=== PATIENT | male | born 1955 | race Caucasian/White ===

== ENCOUNTER → 2016-11-29 | Outpatient (CLI) | payer OTHER ==
[~2016-11-29] MED LIST: ASPIRIN 81M81 MG/TA2 PO; ATROVENT I0.2 MG/1 M IH; BRILINTA90 MG PO; CELEXA 20MG20 MG/TAB PO; INCRUSE EL62.5 MCG/A IH; IPRATROPIUM BROM3 M1 IH; K-DUR20 MEQ PO; K-TAB20 PO; LASIX 80MG TABL80 MG PO; MAG-OX 400400 MG/TAB PO; NATURAL MAGNES200 MG PO; PREDNISONE10 MG PO; TENORMIN 2525 MG/TAB PO; TENORMIN 5050 MG/TAB PO; THEO-DUR 2200 MG/TAB PO; ZOCOR 40MG40 MG PO
== END ==
LOC: COL.VAS 11:55
DX: I08.1 Rheumatic disorders of both mitral and tricuspid valves (principal); R94.39 Abnormal result of other cardiovascular function study; R06.00 Dyspnea, unspecified

== ENCOUNTER 2017-04-26 16:44 | Inpatient (IN) | payer OTHER ==
[~2017-04-26] VITALS: Ht 175.3 cm; Wt 99.3 kg
[2017-04-26] VITALS (263 sets, daily range): BP systolic 88–90; BP diastolic 57–61; PULSE 72–77; TEMP 97.6; O2SAT 85–100
[2017-04-26] MEDS ORDERED: CELEXA 20MG20 MG/TAB PO (17:43)
[2017-04-26] MEDS ORDERED: ASPIRIN 81M81 MG/TA2 PO (17:44)
[2017-04-26] MEDS ORDERED: THEO-DUR 2200 MG/TAB PO (17:44)
[2017-04-26] MEDS ORDERED: ATROVENT I0.2 MG/1 M IH (17:44)
[2017-04-26] MEDS ORDERED: ZOCOR 40MG40 MG PO (17:44)
[2017-04-26] MEDS ORDERED: TENORMIN 5050 MG/TAB PO (17:44)
[2017-04-26] MEDS ORDERED: INCRUSE EL62.5 MCG/A IH (18:50)
[2017-04-26 19:48] LABS: ARTERIAL BLD GAS O2 SATURATION 94.5 % (92-100); ARTERIAL BLD GAS TCO2 CT 31.3; ARTERIAL BLOOD GAS BASE EXCESS 1.1 (-2-2); ARTERIAL BLOOD GAS HCO3 29.4 meq/L (22-26); ARTERIAL BLOOD GAS PHT 7.29 C (7.35-7.45); ARTERIAL BLOOD GAS PO2 81.3 mmHg (80-100); ARTERIAL BLOOD GAS PO2T 81.3 (80-100); ARTERIAL BLOOD GAS pH 7.29 (7.35-7.45); OXYHEMOGLOBIN 93.1 %
[2017-04-26 19:49] LABS: ALLEN TEST YES; ALLENS TEST RESULT PASS; ATS? YES
[2017-04-26 20:08] LABS: INR 1.2 (0.8-3.0); PROTHROMBIN TIME 13.2 SECONDS (9.7-12.8)
[2017-04-26 20:10] LABS: PARTIAL THROMBOPLASTIN TIME 35.4 SECONDS (26.0-37.0)
[2017-04-26 20:24] LABS: MAGNESIUM 1.6 mg/dL (1.6-2.3)
[2017-04-26 20:36] LABS: TROPONIN-I 0.019 ng/mL (0.000-0.034)
[2017-04-26 21:11] LABS: PH 5 (5-8); SQUAMOUS EPITHELIAL None Seen /hpf; URINE APPEARANCE Clear; URINE BACTERIA None Seen /hpf; URINE BILIRUBIN Negative (NEGATIVE); URINE BLOOD 2+ (NEGATIVE); URINE COLOR Amber; URINE GLUCOSE Negative (NEGATIVE); URINE KETONE Negative (NEGATIVE); URINE UROBILINOGEN Negative (NEGATIVE)
[2017-04-26 21:21] LABS: ARTERIAL BLD GAS O2 SATURATION 95.9 % (92-100); ARTERIAL BLD GAS TCO2 CT 27.1; ARTERIAL BLOOD GAS HCO3 25.4 meq/L (22-26); ARTERIAL BLOOD GAS PO2 87.6 mmHg (80-100); ARTERIAL BLOOD GAS pH 7.29 (7.35-7.45); OXYHEMOGLOBIN 93.8 %
[2017-04-26 21:22] LABS: ABG VENTILATOR TIDAL VOLUME 450 mL; ALLEN TEST YES; ALLENS TEST RESULT PASS; ATS? YES
[2017-04-26 23:27] LABS: ARTERIAL BLD GAS TCO2 CT 28.3; ARTERIAL BLOOD GAS BASE EXCESS -1.7 (-2-2); ARTERIAL BLOOD GAS HCO3 26.4 meq/L (22-26); ARTERIAL BLOOD GAS PO2 76.6 mmHg (80-100); ARTERIAL BLOOD GAS pH 7.26 (7.35-7.45); OXYHEMOGLOBIN 91.2 %
[2017-04-26 23:28] LABS: ABG VENTILATOR TIDAL VOLUME 589 mL; ALLEN TEST YES; ALLENS TEST RESULT PASS; ATS? YES
[2017-04-27] VITALS (1080 sets, daily range): BP systolic 87–119; BP diastolic 60–72; PULSE 61–93; TEMP 96.1–97.8; O2SAT 45–100
[2017-04-27 01:18] LABS: ABG VENTILATOR TIDAL VOLUME 860 mL; ALLEN TEST YES; ALLENS TEST RESULT PASS; ARTERIAL BLD GAS O2 SATURATION 96.8 % (92-100); ARTERIAL BLD GAS TCO2 CT 25.7; ARTERIAL BLOOD GAS BASE EXCESS -0.6 (-2-2); ARTERIAL BLOOD GAS HCO3 24.4 meq/L (22-26); ARTERIAL BLOOD GAS PO2 92.8 mmHg (80-100); ARTERIAL BLOOD GAS pH 7.39 (7.35-7.45); ATS? YES; OXYHEMOGLOBIN 95.2 %
[2017-04-27 05:26] LABS: ARTERIAL BLD GAS O2 SATURATION 89.8 % (92-100); ARTERIAL BLOOD GAS BASE EXCESS -1.6 (-2-2); ARTERIAL BLOOD GAS HCO3 25.4 meq/L (22-26); ARTERIAL BLOOD GAS PO2 62.8 mmHg (80-100); OXYHEMOGLOBIN 88.4 %
[2017-04-27 05:27] LABS: ABG VENTILATOR TIDAL VOLUME 820 mL; ALLEN TEST YES; ALLENS TEST RESULT PASS; ATS? YES
[2017-04-27 05:47] LABS: HEMATOCRIT 38.5 % (42.0-52.0); HEMOGLOBIN 12.4 g/dl (13.5-18.0); MEAN CELL VOLUME 101 fl (80.0-100.0); MEAN CORPUSCULAR HEMOGLOBIN 32 pg (27.0-31.0); MEAN CORPUSCULAR HGB CONC 32 g/dl (33.0-37.0); MEAN PLATELET VOLUME 9.7 fl (7.4-10.4); PLATELET COUNT 98 K/mm3 (130-400); RED BLOOD COUNT 3.83 M/mm3 (4.20-5.60); REDCELL DISTRIBUTION WIDTH-CV 14.6 % (11.5-14.5); WHITE BLOOD COUNT 8.6 K/mm3 (4.8-10.8)
[2017-04-27 05:50] LABS: ADD PATHOLOGY DIFF REVIEW NO
[2017-04-27 05:56] LABS: ADJUSTED CALCIUM 8.7 mg/dL (8.4-10.2); ALANINE AMINOTRANSFERASE 33 U/L (21-72); ALKALINE PHOSPHATASE 56 U/L (50-136); ANION GAP 7 mmol/L (7-16); BILIRUBIN,TOTAL 0.5 mg/dL (0.0-1.0); BLOOD UREA NITROGEN 23 mg/dL (9-20); CALCIUM 7.9 mg/dL (8.4-10.2); CARBON DIOXIDE 27 mmol/L (22-30); CHLORIDE 100 mmol/L (98-107); CHOLESTEROL 74 mg/dL (120-200); CREATININE, serum 1.07 mg/dL (0.66-1.25); GLUCOSE 132 mg/dL (74-106); HDL CHOLESTEROL 22 mg/dL; LDL CHOLESTEROL 34 mg/dL; POTASSIUM 4.7 mmol/L (3.4-5.0); SODIUM 134 mmol/L (137-145); TOTAL PROTEIN 6.1 gm/dL (6.4-8.2); TRIGLYCERIDE 91 mg/dL
[2017-04-27 06:07] LABS: B-TYPE NATRIURETIC PEPTIDE 836 pg/mL (0-125); TROPONIN-I < 0.012 ng/mL (0.000-0.034)
[2017-04-27 06:38] LABS: BAND 65 % (0-10); NEUTROPHILS 32 % (42.0-75.2); TOTAL CELLS COUNTED 100
[2017-04-27 06:40] LABS: PLATELET ESTIMATE DECREASED (NORMAL); POLYCHROMASIA 1+; SPHEROCYTE 1+
[2017-04-27 07:56] LABS: ARTERIAL BLD GAS O2 SATURATION 91.4 % (92-100); ARTERIAL BLD GAS TCO2 CT 27.3; ARTERIAL BLOOD GAS HCO3 25.8 meq/L (22-26); ARTERIAL BLOOD GAS PHT 7.36 C (7.35-7.45); ARTERIAL BLOOD GAS PO2 64.7 mmHg (80-100); ARTERIAL BLOOD GAS PO2T 64.7 (80-100); ARTERIAL BLOOD GAS pH 7.36 (7.35-7.45); OXYHEMOGLOBIN 90.4 %
[2017-04-27 07:57] LABS: ATS? YES
[2017-04-27 15:19] LABS: ARTERIAL BLD GAS O2 SATURATION 91.3 % (92-100); ARTERIAL BLD GAS TCO2 CT 29.2; ARTERIAL BLOOD GAS BASE EXCESS 0.9 (-2-2); ARTERIAL BLOOD GAS HCO3 27.6 meq/L (22-26); ARTERIAL BLOOD GAS PHT 7.34 C (7.35-7.45); ARTERIAL BLOOD GAS pH 7.34 (7.35-7.45); OXYHEMOGLOBIN 90.6 %
[2017-04-27 15:20] LABS: ATS? YES
[2017-04-28] VITALS (313 sets, daily range): BP systolic 93–116; BP diastolic 53–77; PULSE 63–94; TEMP 96.9–98.7; O2SAT 85–100
[2017-04-28 04:38] LABS: ARTERIAL BLD GAS O2 SATURATION 97.2 % (92-100); ARTERIAL BLD GAS TCO2 CT 28.4; ARTERIAL BLOOD GAS BASE EXCESS 1.5 (-2-2); ARTERIAL BLOOD GAS PO2 96.3 mmHg (80-100); ARTERIAL BLOOD GAS pH 7.39 (7.35-7.45); OXYHEMOGLOBIN 96.4 %
[2017-04-28 04:40] LABS: ABG VENTILATOR TIDAL VOLUME 802 mL; ATS? YES
[2017-04-28 05:44] LABS: CALCIUM 8.5 mg/dL (8.4-10.2); CREATININE, serum 0.95 mg/dL (0.66-1.25); MAGNESIUM 2.1 mg/dL (1.6-2.3); POTASSIUM 4.3 mmol/L (3.4-5.0)
[2017-04-29 03:30] VITALS: BP 96/47; PULSE 58; TEMP 97.5
[2017-04-29 07:55] VITALS: BP 109/56; PULSE 80; TEMP 97.6
[2017-04-29 12:09] VITALS: BP 103/51; PULSE 65; TEMP 97.5
[2017-04-29 15:30] VITALS: BP 112/53; PULSE 75; TEMP 97.5
[2017-04-29 20:42] VITALS: BP 122/68; PULSE 79; TEMP 97.7
[2017-04-30 01:13] VITALS: BP 113/66; PULSE 69; TEMP 97.4
[2017-04-30 05:28] VITALS: BP 124/75; PULSE 64; TEMP 97.4
[2017-04-30 07:07] LABS: CALCIUM 8.5 mg/dL (8.4-10.2); CREATININE, serum 0.89 mg/dL (0.66-1.25); POTASSIUM 3.8 mmol/L (3.4-5.0)
[2017-04-30 08:09] VITALS: BP 110/67; PULSE 74; TEMP 97.6
[2017-04-30 11:43] VITALS: BP 104/72; PULSE 71; TEMP 97.4
[2017-04-30 15:34] VITALS: BP 114/54; PULSE 74; TEMP 98.1
[2017-04-30 20:23] LABS: CALCIUM 9.1 mg/dL (8.4-10.2); CREATININE, serum 1.04 mg/dL (0.66-1.25); MAGNESIUM 2.1 mg/dL (1.6-2.3); POTASSIUM 4.3 mmol/L (3.4-5.0)
[2017-04-30 20:55] VITALS: BP 106/69; PULSE 72; TEMP 97.7
[2017-05-01 00:39] VITALS: BP 106/73; PULSE 58; TEMP 97.3
[2017-05-01 04:43] VITALS: BP 117/77; PULSE 79; TEMP 97.5
[2017-05-01 06:56] LABS: CALCIUM 8.8 mg/dL (8.4-10.2); CREATININE, serum 0.96 mg/dL (0.66-1.25); MAGNESIUM 2.2 mg/dL (1.6-2.3); POTASSIUM 4.1 mmol/L (3.4-5.0)
[2017-05-01 08:01] VITALS: BP 110/59; PULSE 100; TEMP 97.8
[2017-05-01 11:35] VITALS: BP 101/58; PULSE 71; TEMP 98.2
[2017-05-01 16:43] VITALS: BP 116/72; PULSE 72; TEMP 97.9
[2017-05-01 20:51] VITALS: BP 104/60; PULSE 75; TEMP 97.4
[2017-05-02 00:22] VITALS: BP 106/63; PULSE 76; TEMP 97.5
[2017-05-02 03:49] VITALS: BP 111/69; PULSE 66; TEMP 97.5
[2017-05-02 07:01] LABS: CREATININE, serum 1.05 mg/dL (0.66-1.25); POTASSIUM 4.5 mmol/L (3.4-5.0)
[2017-05-02 08:04] VITALS: BP 112/63; PULSE 83; TEMP 97.6
[2017-05-02] MEDS ORDERED: PREDNISONE10 MG PO (10:26)
[2017-05-02] MEDS ORDERED: K-TAB20 PO (10:29)
[2017-05-02] MEDS ORDERED: LASIX 80MG TABL80 MG PO (10:29)
[2017-05-02] MEDS ORDERED: MAG-OX 400400 MG/TAB PO (10:31)
[2017-05-02] MEDS ORDERED: TENORMIN 2525 MG/TAB PO (10:33)
[2017-05-02 11:22] VITALS: BP 102/67; PULSE 77; TEMP 98.2
== END 2017-05-02 12:42 | disposition home or self-care (01) | DRG 189 ==
LOC: MEDICAL 16:44 → ICU 19:29 → MEDICAL 04-28 11:56 → ICU 04-28 11:56 → MEDICAL 05-01 10:12
PROVIDERS: Internal Medicine Pulmonary Disease; Nurse Practitioner Family; Physician Assistant
DX: J96.01 Acute respiratory failure with hypoxia (principal); J18.9 Pneumonia, unspecified organism; I50.33 Acute on chronic diastolic (congestive) heart failure; J44.0 Chronic obstructive pulmonary disease with (acute) lower respiratory infection; N17.9 Acute kidney failure, unspecified; J44.1 Chronic obstructive pulmonary disease with (acute) exacerbation; J96.02 Acute respiratory failure with hypercapnia; I11.0 Hypertensive heart disease with heart failure; I25.10 Atherosclerotic heart disease of native coronary artery without angina pectoris; I08.3 Combined rheumatic disorders of mitral, aortic and tricuspid valves; I27.2 Other secondary pulmonary hypertension; F17.210 Nicotine dependence, cigarettes, uncomplicated; G47.33 Obstructive sleep apnea (adult) (pediatric)
CPT/HCPCS: 99223-AI; 99233-AI; 99239; J0456; J0696; J1200; J1644; J1940; J1956; J2920; J2930; J3475; J7030; J7050; J7120; J7512

== ENCOUNTER 2017-05-13 08:19 | Observation (INO) | payer OTHER ==
[~2017-05-13] VITALS: Ht 175.4 cm; Wt 101.0 kg
[2017-05-13] VITALS (137 sets, daily range): BP systolic 90–105; BP diastolic 57–80; PULSE 70–93; TEMP 37; O2SAT 87–100
[~2017-05-13 08:19] MED LIST changes: -BRILINTA90 MG PO; -IPRATROPIUM BROM3 M1 IH; -K-DUR20 MEQ PO; -NATURAL MAGNES200 MG PO
[2017-05-13 09:03] LABS: HEMATOCRIT 42.6 % (42.0-52.0); HEMOGLOBIN 14.1 g/dl (13.5-18.0); MEAN CELL VOLUME 98 fl (80.0-100.0); MEAN CORPUSCULAR HEMOGLOBIN 32 pg (27.0-31.0); MEAN CORPUSCULAR HGB CONC 33 g/dl (33.0-37.0); MEAN PLATELET VOLUME 9.9 fl (7.4-10.4); PLATELET COUNT 120 K/mm3 (130-400); RED BLOOD COUNT 4.36 M/mm3 (4.20-5.60); REDCELL DISTRIBUTION WIDTH-CV 14.1 % (11.5-14.5); WHITE BLOOD COUNT 9.3 K/mm3 (4.8-10.8)
[2017-05-13] MEDS ORDERED: TENORMIN 2525 MG/TAB PO (09:05)
[2017-05-13] MEDS ORDERED: LASIX 80MG TABL80 MG PO (09:06)
[2017-05-13] MEDS ORDERED: MAG-OX 400400 MG/TAB PO (09:07)
[2017-05-13] MEDS ORDERED: K-DUR20 MEQ PO (09:08)
[2017-05-13 09:09] LABS: PROTHROMBIN TIME 11.2 SECONDS (9.7-12.8)
[2017-05-13] MEDS ORDERED: IPRATROPIUM BROM3 M1 IH (09:10)
[2017-05-13 09:14] LABS: CREATININE, serum 1.11 mg/dL (0.66-1.25); POTASSIUM 4.4 mmol/L (3.4-5.0)
[2017-05-14] VITALS (7 sets, daily range): BP systolic 82–125; BP diastolic 45–79; PULSE 65–96; TEMP 97.8–100.4
[2017-05-14] MEDS ORDERED: BRILINTA90 MG PO (11:09)
[2017-05-14] MEDS ORDERED: NATURAL MAGNES200 MG PO (11:11)
[2017-05-14 12:45] LABS: PH 7 (5-8); SQUAMOUS EPITHELIAL None Seen /hpf; URINE APPEARANCE Clear; URINE BACTERIA None Seen /hpf; URINE BILIRUBIN Negative (NEGATIVE); URINE BLOOD 1+ (NEGATIVE); URINE COLOR Yellow; URINE GLUCOSE Negative (NEGATIVE); URINE KETONE Negative (NEGATIVE); URINE UROBILINOGEN Negative (NEGATIVE); URINE WBC None Seen /hpf
[2017-05-14 14:10] LABS: BASO % 0.2 % (0.0-2.0); EOS % 0.4 % (0-4.0); GRAN # 7.6 (1.4-6.5); GRAN % 85.5 % (42.2-75.2); HEMATOCRIT 44.5 % (42.0-52.0); HEMOGLOBIN 14.2 g/dl (13.5-18.0); LYMPH # 0.6 (1.2-3.4); LYMPH % 6.3 % (20.0-51.0); MEAN CELL VOLUME 102 fl (80.0-100.0); MEAN CORPUSCULAR HEMOGLOBIN 32 pg (27.0-31.0); MEAN CORPUSCULAR HGB CONC 32 g/dl (33.0-37.0); MEAN PLATELET VOLUME 10.2 fl (7.4-10.4); MONO # 0.7 (0.1-0.6); MONO % 7.3 % (1.7-9.3); PLATELET COUNT 103 K/mm3 (130-400); RED BLOOD COUNT 4.38 M/mm3 (4.20-5.60); REDCELL DISTRIBUTION WIDTH-CV 14.2 % (11.5-14.5); WHITE BLOOD COUNT 8.9 K/mm3 (4.8-10.8)
[2017-05-15 00:26] VITALS: BP 91/55; PULSE 74; TEMP 97.8
[2017-05-15 03:57] VITALS: BP 102/61; PULSE 77; TEMP 98.1
[2017-05-15 07:35] VITALS: BP 104/60; PULSE 79; TEMP 97.6
[2017-05-15 11:19] VITALS: BP 91/57; PULSE 71; TEMP 98
== END 2017-05-15 12:29 | disposition home or self-care (01) ==
LOC: COL.CAR 08:19 → ICU 14:13 → MEDICAL 05-14 12:50 → COL.CAR 05-14 13:00 → MEDICAL 05-14 13:01
PROVIDERS: Internal Medicine Cardiovascular Disease
DX: I25.10 Atherosclerotic heart disease of native coronary artery without angina pectoris (principal); I27.2 Other secondary pulmonary hypertension; J44.1 Chronic obstructive pulmonary disease with (acute) exacerbation; G47.33 Obstructive sleep apnea (adult) (pediatric); I50.9 Heart failure, unspecified; Z95.5 Presence of coronary angioplasty implant and graft
CPT/HCPCS: OP; C1725; C1760; C1769; C1874; C1887; C1894; C9600; G0378; G0379; J0583; J2250; J2405; J3010; Q9967

== ENCOUNTER 2017-06-19 12:19 | Inpatient (IN) | payer OTHER ==
[~2017-06-19] VITALS: Ht 175.3 cm; Wt 106.0 kg
[2017-06-19] VITALS (426 sets, daily range): BP systolic 99–102; BP diastolic 58–69; PULSE 83–106; TEMP 99.1–100.2; O2SAT 44–100
[~2017-06-19 12:19] MED LIST changes: +BRILINTA90 MG PO; +IPRATROPIUM BROM3 M1 IH; +K-DUR20 MEQ PO; +NATURAL MAGNES200 MG PO
[2017-06-19 13:11] LABS: HEMATOCRIT 37.2 % (42.0-52.0); HEMOGLOBIN 12.6 g/dl (13.5-18.0); MEAN CELL VOLUME 97 fl (80.0-100.0); MEAN CORPUSCULAR HEMOGLOBIN 33 pg (27.0-31.0); MEAN CORPUSCULAR HGB CONC 34 g/dl (33.0-37.0); PLATELET COUNT 127 K/mm3 (130-400); RED BLOOD COUNT 3.84 M/mm3 (4.20-5.60); REDCELL DISTRIBUTION WIDTH-CV 15.3 % (11.5-14.5); WHITE BLOOD COUNT 13.2 K/mm3 (4.8-10.8)
[2017-06-19 13:17] LABS: ADJUSTED CALCIUM 8.8 mg/dL (8.4-10.2); CALCIUM 8.8 mg/dL (8.4-10.2); CREATININE, serum 1.37 mg/dL (0.66-1.25); POTASSIUM 3.8 mmol/L (3.4-5.0); TOTAL PROTEIN 7.1 gm/dL (6.4-8.2)
[2017-06-19 13:26] LABS: ADD PATHOLOGY DIFF REVIEW NO; TROPONIN-I 0.017 ng/mL (0.000-0.034)
[2017-06-19 14:39] LABS: BAND 47 % (0-10); NEUTROPHILS 48 % (42.0-75.2); PLATELET ESTIMATE DECREASED (NORMAL); TOTAL CELLS COUNTED 100
[2017-06-19 14:40] LABS: STOMATOCYTE 2+; THEOPHYLLINE 4.4 ug/mL (10.0-20.0)
[2017-06-19 15:34] LABS: PH 5 (5-8); SQUAMOUS EPITHELIAL 0-2 /hpf; URINE APPEARANCE Clear; URINE BACTERIA Rare /hpf; URINE BILIRUBIN Negative (NEGATIVE); URINE BLOOD 2+ (NEGATIVE); URINE COLOR Yellow; URINE GLUCOSE Negative (NEGATIVE); URINE KETONE Negative (NEGATIVE); URINE UROBILINOGEN Negative (NEGATIVE); URINE WBC 0-2 /hpf
[2017-06-19 16:25] LABS: INFLUENZA B NEGATIVE
[2017-06-19 16:30] LABS: C-REACTIVE PROTEIN 12.5 mg/dL (0.0-0.9)
[2017-06-19 17:17] LABS: ARTERIAL BLD GAS O2 SATURATION 95.3 % (92-100); ARTERIAL BLD GAS TCO2 CT 22.1; ARTERIAL BLOOD GAS BASE EXCESS -3.2 (-2-2); ARTERIAL BLOOD GAS HCO3 21.1 meq/L (22-26); OXYHEMOGLOBIN 94.3 %
[2017-06-19 17:18] LABS: ALLEN TEST YES; ALLENS TEST RESULT PASS; ATS? YES
[2017-06-20] VITALS (923 sets, daily range): BP systolic 88–106; BP diastolic 50–65; PULSE 40–100; TEMP 97–100.2; O2SAT 76–100
[2017-06-20 06:26] LABS: ADD PATHOLOGY DIFF REVIEW NO
[2017-06-20 06:31] LABS: MEAN CELL VOLUME 99 fl (80.0-100.0); MEAN CORPUSCULAR HGB CONC 33 g/dl (33.0-37.0); MEAN PLATELET VOLUME 10.1 fl (7.4-10.4); PLATELET COUNT 110 K/mm3 (130-400); RED BLOOD COUNT 3.12 M/mm3 (4.20-5.60); REDCELL DISTRIBUTION WIDTH-CV 15.7 % (11.5-14.5); WHITE BLOOD COUNT 8.7 K/mm3 (4.8-10.8)
[2017-06-20 06:32] LABS: HEMOGLOBIN 10.1 g/dl (13.5-18.0); MEAN CORPUSCULAR HEMOGLOBIN 32 pg (27.0-31.0)
[2017-06-20 07:02] LABS: BAND 31 % (0-10); NEUTROPHILS 68 % (42.0-75.2); TOTAL CELLS COUNTED 100
[2017-06-20 07:03] LABS: PLATELET ESTIMATE DECREASED (NORMAL)
[2017-06-20 08:01] LABS: ADJUSTED CALCIUM 8.4 mg/dL (8.4-10.2); ALBUMIN 3.1 gm/dL (3.5-5.0); BILIRUBIN,TOTAL 0.5 mg/dL (0.0-1.0); CALCIUM 7.7 mg/dL (8.4-10.2); CREATININE, serum 0.99 mg/dL (0.66-1.25); POTASSIUM 4.2 mmol/L (3.4-5.0); TOTAL PROTEIN 5.9 gm/dL (6.4-8.2)
[2017-06-21 04:15] VITALS: BP 124/80; PULSE 90; TEMP 97.6
[2017-06-21 08:23] VITALS: BP 95/53; PULSE 67; TEMP 98
[2017-06-21 08:34] LABS: ADD PATHOLOGY DIFF REVIEW NO
[2017-06-21 08:44] LABS: MEAN CELL VOLUME 100 fl (80.0-100.0); MEAN CORPUSCULAR HGB CONC 32 g/dl (33.0-37.0); MEAN PLATELET VOLUME 10.2 fl (7.4-10.4); PLATELET COUNT 123 K/mm3 (130-400); RED BLOOD COUNT 3.52 M/mm3 (4.20-5.60); REDCELL DISTRIBUTION WIDTH-CV 15.7 % (11.5-14.5)
[2017-06-21 08:47] LABS: CALCIUM 8.6 mg/dL (8.4-10.2); CREATININE, serum 0.93 mg/dL (0.66-1.25); POTASSIUM 4.1 mmol/L (3.4-5.0)
[2017-06-21 10:19] LABS: HEMATOCRIT 35.3 % (42.0-52.0); HEMOGLOBIN 11.4 g/dl (13.5-18.0); MEAN CORPUSCULAR HEMOGLOBIN 32 pg (27.0-31.0)
[2017-06-21 10:42] LABS: BAND 58 % (0-10); METAMYELOCYTE 1 % (0-0); NEUTROPHILS 37 % (42.0-75.2); PLATELET ESTIMATE DECREASED (NORMAL); TOTAL CELLS COUNTED 100
[2017-06-21 10:47] LABS: ANISOCYTOSIS 1+; MICROCYTOSIS 1+
[2017-06-21 11:24] VITALS: BP 93/47; PULSE 70; TEMP 98.3
[2017-06-21 16:18] VITALS: BP 98/50; PULSE 76; TEMP 97.8
[2017-06-21 19:50] VITALS: BP 127/57; PULSE 86; TEMP 97.8
[2017-06-21 22:59] VITALS: BP 111/63; PULSE 68; TEMP 98
[2017-06-22 03:34] VITALS: BP 113/70; PULSE 65; TEMP 98.4
[2017-06-22 08:33] VITALS: BP 96/72; PULSE 65; TEMP 97.6
[2017-06-22 12:36] VITALS: BP 105/56; PULSE 66; TEMP 97.8
[2017-06-22] MEDS ORDERED: OMNICEF 300MG300 MG PO (13:23)
[2017-06-22] MEDS ORDERED: ZITHROMAX500 M2 PO (13:24)
[2017-06-22] MEDS ORDERED: PREDNISONE10 MG PO (13:28)
[2017-06-22] MEDS ORDERED: MUCINEX 60600 MG/TA1 PO (13:29)
[2017-06-22] MEDS ORDERED: FORTAMET500 M1 PO (13:47)
== END 2017-06-22 15:25 | disposition home or self-care (01) | DRG 871 ==
LOC: COL.ER 12:19 → ICU 14:53 → MEDICAL 06-20 16:05
PROVIDERS: Emergency Medicine; Internal Medicine Cardiovascular Disease
PROC: 02HV33Z Insertion of Infusion Device into Superior Vena Cava, Percutaneous Approach (ICD-10-PCS; principal; 2017-06-19)
DX: A41.9 Sepsis, unspecified organism (principal); J18.9 Pneumonia, unspecified organism; J44.0 Chronic obstructive pulmonary disease with (acute) lower respiratory infection; I50.32 Chronic diastolic (congestive) heart failure; N17.9 Acute kidney failure, unspecified; J44.1 Chronic obstructive pulmonary disease with (acute) exacerbation; J96.11 Chronic respiratory failure with hypoxia; I11.0 Hypertensive heart disease with heart failure; I25.10 Atherosclerotic heart disease of native coronary artery without angina pectoris; G47.33 Obstructive sleep apnea (adult) (pediatric); Z87.891 Personal history of nicotine dependence; Z95.5 Presence of coronary angioplasty implant and graft; R73.9 Hyperglycemia, unspecified; T38.0X5A Adverse effect of glucocorticoids and synthetic analogues, initial encounter
CPT/HCPCS: 99223-AI; 99232-AI; 99233-AI; 99239; C1751; J0456; J0696; J1650; J1815; J2405; J2930; J7030; J7050; J7512

== ENCOUNTER 2017-08-18 04:47 | Inpatient (IN) | payer OTHER ==
[~2017-08-18] VITALS: Ht 175.3 cm; Wt 99.4 kg
[2017-08-18] VITALS (870 sets, daily range): BP systolic 89–105; BP diastolic 53–70; PULSE 84–112; TEMP 97–101.2; O2SAT 61–100
[~2017-08-18 04:47] MED LIST changes: +FORTAMET500 M1 PO; +MUCINEX 60600 MG/TA1 PO; +OMNICEF 300MG300 MG PO; +ZITHROMAX500 M2 PO
[2017-08-18 05:26] LABS: ARTERIAL BLD GAS O2 SATURATION 94.7 % (92-100); ARTERIAL BLOOD GAS BASE EXCESS 3.4 (-2-2); ARTERIAL BLOOD GAS HCO3 25.1 meq/L (22-26); ARTERIAL BLOOD GAS PHT 7.55 C (7.35-7.45); ARTERIAL BLOOD GAS PO2 66.9 mmHg (80-100); ARTERIAL BLOOD GAS PO2T 66.9 (80-100); ARTERIAL BLOOD GAS pH 7.55 (7.35-7.45); OXYHEMOGLOBIN 93.7 %
[2017-08-18 05:27] LABS: ALLEN TEST YES; ALLENS TEST RESULT PASS; ATS? YES
[2017-08-18 05:41] LABS: COLLECTION METHOD CLEAN CATCH
[2017-08-18 05:44] LABS: MEAN CELL VOLUME 96 fl (80.0-100.0); MEAN CORPUSCULAR HEMOGLOBIN 33 pg (27.0-31.0); MEAN CORPUSCULAR HGB CONC 34 g/dl (33.0-37.0); MEAN PLATELET VOLUME 9.9 fl (7.4-10.4); PLATELET COUNT 131 K/mm3 (130-400); RED BLOOD COUNT 3.66 M/mm3 (4.20-5.60); WHITE BLOOD COUNT 13.6 K/mm3 (4.8-10.8)
[2017-08-18 05:47] LABS: HEMATOCRIT 35.3 % (42.0-52.0)
[2017-08-18 05:48] LABS: ADD PATHOLOGY DIFF REVIEW NO
[2017-08-18 05:50] LABS: ADJUSTED CALCIUM 9.1 mg/dL (8.4-10.2); BILIRUBIN,TOTAL 0.9 mg/dL (0.0-1.0); CALCIUM 9.1 mg/dL (8.4-10.2); CREATININE, serum 1.39 mg/dL (0.66-1.25); POTASSIUM 3.3 mmol/L (3.4-5.0); TOTAL PROTEIN 7.5 gm/dL (6.4-8.2)
[2017-08-18 05:51] LABS: PH 5 (5-8); SQUAMOUS EPITHELIAL None Seen /hpf; URINE APPEARANCE Hazy; URINE BACTERIA Rare /hpf; URINE BILIRUBIN Negative (NEGATIVE); URINE BLOOD 2+ (NEGATIVE); URINE COLOR Yellow; URINE GLUCOSE Negative (NEGATIVE); URINE KETONE Negative (NEGATIVE); URINE LEUKOCYTE ESTERASE Negative (NEGATIVE); URINE PROTEIN(semi-quant) 1+ (NEGATIVE); URINE UROBILINOGEN Negative (NEGATIVE); URINE WBC 0-2 /hpf
[2017-08-18] MEDS ORDERED: CELEXA10 MG PO (05:53)
[2017-08-18 06:01] LABS: TROPONIN-I 0.019 ng/mL (0.000-0.034)
[2017-08-18 06:13] LABS: BAND 39 % (0-10); BASOPHIL 1 % (0-2); LYMPHOCYTE 1 % (20.0-51.0); NEUTROPHILS 57 % (42.0-75.2); PLATELET ESTIMATE DECREASED (NORMAL); TOTAL CELLS COUNTED 100
[2017-08-18 06:15] LABS: STOMATOCYTE 1+
[2017-08-18] MEDS ORDERED: THEO-24 30300 MG/CAP PO (08:33)
[2017-08-18] MEDS ORDERED: VENTOLIN0.09 MG IH (08:34)
[2017-08-18] MEDS ORDERED: NITROSTAT0.4 MG/TAB SL (08:35)
[2017-08-18 10:55] LABS: VENOUS BLOOD GAS BE -0.5 (-4-4); VENOUS BLOOD GAS SAO2 61.3 % (60-80)
[2017-08-18 10:56] LABS: VENOUS BLOOD GAS SITE CENTRAL LINE
[2017-08-18 11:15] LABS: INR 1.3 (0.8-3.0); PROTHROMBIN TIME 14.3 SECONDS (9.7-12.8)
[2017-08-18 16:47] LABS: VENOUS BLOOD GAS BE -0.3 (-4-4); VENOUS BLOOD GAS SAO2 62.4 % (60-80)
[2017-08-18 16:48] LABS: VENOUS BLOOD GAS SITE CENTRAL LINE
[2017-08-18 19:54] LABS: VENOUS BLOOD GAS BE -3.5 (-4-4); VENOUS BLOOD GAS SAO2 66.1 % (60-80); VENOUS BLOOD GAS SITE CENTRAL LINE
[2017-08-19] VITALS (650 sets, daily range): BP systolic 93–119; BP diastolic 55–72; PULSE 76–108; TEMP 96.9–98.1; O2SAT 67–100
[2017-08-19 00:11] LABS: VENOUS BLOOD GAS SAO2 66.4 % (60-80)
[2017-08-19 00:13] LABS: VENOUS BLOOD GAS SITE CENTRAL LINE
[2017-08-19 03:40] LABS: MEAN CELL VOLUME 100 fl (80.0-100.0); MEAN CORPUSCULAR HGB CONC 33 g/dl (33.0-37.0); MEAN PLATELET VOLUME 9.7 fl (7.4-10.4); PLATELET COUNT 105 K/mm3 (130-400); RED BLOOD COUNT 2.78 M/mm3 (4.20-5.60)
[2017-08-19 03:47] LABS: INR 1.2 (0.8-3.0)
[2017-08-19 03:48] LABS: HEMATOCRIT 27.8 % (42.0-52.0); HEMOGLOBIN 9.2 g/dl (13.5-18.0); MEAN CORPUSCULAR HEMOGLOBIN 33 pg (27.0-31.0)
[2017-08-19 03:49] LABS: ADD PATHOLOGY DIFF REVIEW NO
[2017-08-19 03:52] LABS: ALBUMIN 3.1 gm/dL (3.5-5.0); BILIRUBIN,TOTAL 0.2 mg/dL (0.0-1.0); CALCIUM 8.3 mg/dL (8.4-10.2); MAGNESIUM 2.1 mg/dL (1.6-2.3); POTASSIUM 3.6 mmol/L (3.4-5.0); TOTAL PROTEIN 6.2 gm/dL (6.4-8.2)
[2017-08-19 03:59] LABS: BAND 41 % (0-10); LYMPHOCYTE 3 % (20.0-51.0); NEUTROPHILS 51 % (42.0-75.2); PLATELET ESTIMATE NORMAL (NORMAL); TOTAL CELLS COUNTED 100
[2017-08-19 04:26] LABS: ARTERIAL BLD GAS O2 SATURATION 96.6 % (92-100); ARTERIAL BLD GAS TCO2 CT 24.3; ARTERIAL BLOOD GAS BASE EXCESS -1.9 (-2-2); ARTERIAL BLOOD GAS HCO3 23.1 meq/L (22-26); ARTERIAL BLOOD GAS PHT 7.38 C (7.35-7.45); ARTERIAL BLOOD GAS PO2 92.8 mmHg (80-100); ARTERIAL BLOOD GAS PO2T 92.8 (80-100); ARTERIAL BLOOD GAS pH 7.38 (7.35-7.45); OXYHEMOGLOBIN 95.7 %
[2017-08-19 04:26] LABS: VENOUS BLOOD GAS BE -5.7 (-4-4); VENOUS BLOOD GAS SAO2 65.5 % (60-80)
[2017-08-19 04:29] LABS: ALLEN TEST YES; ALLENS TEST RESULT PASS; ATS? YES
[2017-08-19 04:29] LABS: VENOUS BLOOD GAS SITE CENTRAL LINE
[2017-08-20 00:11] VITALS: BP 105/65; PULSE 91; TEMP 96.9
[2017-08-20 03:52] VITALS: BP 106/67; PULSE 73; TEMP 98
[2017-08-20 07:13] LABS: BASO % 0.3 % (0.0-2.0); GRAN # 5.2 (1.4-6.5); GRAN % 82.9 % (42.2-75.2); LYMPH # 0.5 (1.2-3.4); LYMPH % 8.3 % (20.0-51.0); MEAN CELL VOLUME 102 fl (80.0-100.0); MEAN CORPUSCULAR HGB CONC 32 g/dl (33.0-37.0); MEAN PLATELET VOLUME 10.5 fl (7.4-10.4); MONO # 0.5 (0.1-0.6); MONO % 7.5 % (1.7-9.3); PLATELET COUNT 113 K/mm3 (130-400); WHITE BLOOD COUNT 6.3 K/mm3 (4.8-10.8)
[2017-08-20 07:15] LABS: HEMATOCRIT 28.5 % (42.0-52.0); MEAN CORPUSCULAR HEMOGLOBIN 32 pg (27.0-31.0)
[2017-08-20 07:18] LABS: ADJUSTED CALCIUM 9.6 mg/dL (8.4-10.2); BILIRUBIN,TOTAL 0.2 mg/dL (0.0-1.0); CALCIUM 8.8 mg/dL (8.4-10.2); CREATININE, serum 0.96 mg/dL (0.66-1.25); POTASSIUM 4.4 mmol/L (3.4-5.0)
[2017-08-20 07:20] VITALS: BP 117/67; PULSE 76; TEMP 97.6
[2017-08-20] MEDS ORDERED: DALIRESP500 MCG PO (10:20)
[2017-08-20] MEDS ORDERED: RT ADVAIR 228 DISKUS IH ×2 (10:31→11:31)
[2017-08-20] MEDS ORDERED: ZITHROMAX 250M250 MG PO (10:32)
[2017-08-20] MEDS ORDERED: CEFTIN500 MG PO (10:33)
[2017-08-20] MEDS ORDERED: PREDNISONE20 MG PO (10:35)
[2017-08-20] MEDS ORDERED: GLUCOPHAGE500 MG/TAB PO (13:12)
== END 2017-08-20 13:30 | disposition home or self-care (01) | DRG 871 ==
LOC: COL.ER 04:47 → ICU 07:04 → MEDICAL 08-19 12:03
PROVIDERS: Family Medicine; Internal Medicine; Nurse Practitioner
PROC: 02HV33Z Insertion of Infusion Device into Superior Vena Cava, Percutaneous Approach (ICD-10-PCS; principal; 2017-08-18)
DX: A41.9 Sepsis, unspecified organism (principal); J18.9 Pneumonia, unspecified organism; J96.21 Acute and chronic respiratory failure with hypoxia; I50.32 Chronic diastolic (congestive) heart failure; Z66 Do not resuscitate; R65.20 Severe sepsis without septic shock; I11.0 Hypertensive heart disease with heart failure; I25.10 Atherosclerotic heart disease of native coronary artery without angina pectoris; J44.9 Chronic obstructive pulmonary disease, unspecified; E87.6 Hypokalemia; Z95.5 Presence of coronary angioplasty implant and graft; Z87.891 Personal history of nicotine dependence
CPT/HCPCS: 99233-AI; 99239; C1751; J0456; J0692; J0696; J1644; J1650; J1720; J1815; J3370; J7030; J7040; J7050; Q9967

== ENCOUNTER 2017-10-19 14:59 | Emergency (ER) | payer OTHER ==
[~2017-10-19] VITALS: Ht 175.3 cm; Wt 99.1 kg
[~2017-10-19 14:59] MED LIST changes: +CEFTIN500 MG PO; +CELEXA10 MG PO; +DALIRESP500 MCG PO; +GLUCOPHAGE500 MG/TAB PO; +NITROSTAT0.4 MG/TAB SL; +PREDNISONE20 MG PO; +RT ADVAIR 228 DISKUS IH; +THEO-24 30300 MG/CAP PO; +VENTOLIN0.09 MG IH; +ZITHROMAX 250M250 MG PO
[2017-10-19 15:01] VITALS: TEMP 98.5
[2017-10-19 15:41] LABS: BASO % 0.4 % (0.0-2.0); EOS # 0.2 (0.0-0.7); EOS % 2.1 % (0-4.0); GRAN # 5.9 (1.4-6.5); GRAN % 76.1 % (42.2-75.2); HEMOGLOBIN 11.9 g/dl (13.5-18.0); LYMPH # 1.2 (1.2-3.4); LYMPH % 15.4 % (20.0-51.0); MEAN CELL VOLUME 96 fl (80.0-100.0); MEAN CORPUSCULAR HEMOGLOBIN 32 pg (27.0-31.0); MEAN CORPUSCULAR HGB CONC 33 g/dl (33.0-37.0); MEAN PLATELET VOLUME 9.1 fl (7.4-10.4); MONO # 0.4 (0.1-0.6); MONO % 5.7 % (1.7-9.3); PLATELET COUNT 187 K/mm3 (130-400); RED BLOOD COUNT 3.77 M/mm3 (4.20-5.60); REDCELL DISTRIBUTION WIDTH-CV 13.9 % (11.5-14.5)
[2017-10-19 15:47] LABS: INR 1.2 (0.8-3.0); PROTHROMBIN TIME 13.9 SECONDS (9.7-12.8)
[2017-10-19 15:51] LABS: ALANINE AMINOTRANSFERASE 28 U/L (21-72); ALBUMIN 4.2 gm/dL (3.5-5.0); ALKALINE PHOSPHATASE 79 U/L (50-136); ANION GAP 12 mmol/L (7-16); AST,SGOT 21 U/L (15-37); BILIRUBIN,TOTAL 0.5 mg/dL (0.0-1.0); BLOOD UREA NITROGEN 20 mg/dL (9-20); CALCIUM 9.2 mg/dL (8.4-10.2); CARBON DIOXIDE 28 mmol/L (22-30); CHLORIDE 99 mmol/L (98-107); CREATININE, serum 1.33 mg/dL (0.66-1.25); GLUCOSE 160 mg/dL (74-106); POTASSIUM 3.5 mmol/L (3.4-5.0); SODIUM 138 mmol/L (137-145); TOTAL PROTEIN 7.8 gm/dL (6.4-8.2)
[2017-10-19 15:56] LABS: INFLUENZA A NEGATIVE; INFLUENZA B NEGATIVE
[2017-10-19] MEDS ORDERED: ZOCOR 40MG40 MG PO (15:58)
[2017-10-19] MEDS ORDERED: ZANTAC 150MG T150 MG PO (15:58)
[2017-10-19] MEDS ORDERED: TENORMIN 2525 MG/TAB PO (16:02)
[2017-10-19 16:03] LABS: TROPONIN-I < 0.012 ng/mL (0.000-0.034)
[2017-10-19] MEDS ORDERED: K-TAB20 (16:03)
[2017-10-19] MEDS ORDERED: MUCINEX 60600 MG/TA1 PO (16:03)
[2017-10-19] MEDS ORDERED: PREDNISONE20 MG PO (16:18)
[2017-10-19 16:58] VITALS: BP 122/62; PULSE 88
== END 2017-10-19 16:59 | disposition home or self-care (01) ==
LOC: COL.ER 14:59
PROVIDERS: Family Medicine
DX: J40 Bronchitis, not specified as acute or chronic (principal); J44.9 Chronic obstructive pulmonary disease, unspecified; I50.9 Heart failure, unspecified; Z79.82 Long term (current) use of aspirin
CPT/HCPCS: J7512

== ENCOUNTER 2017-10-27 18:45 | Inpatient (IN) | payer OTHER ==
[2017-10-27] VITALS (10 sets, daily range): O2SAT 92–98
[~2017-10-27] VITALS: Ht 175.3 cm; Wt 105.5 kg
[~2017-10-27 18:45] MED LIST changes: +K-TAB20; +ZANTAC 150MG T150 MG PO
[2017-10-27 19:25] LABS: BASO % 0.2 % (0.0-2.0); GRAN # 16.9 (1.4-6.5); GRAN % 92.4 % (42.2-75.2); HEMATOCRIT 37.8 % (42.0-52.0); HEMOGLOBIN 12.9 g/dl (13.5-18.0); LYMPH # 0.3 (1.2-3.4); LYMPH % 1.6 % (20.0-51.0); MEAN CELL VOLUME 94 fl (80.0-100.0); MEAN CORPUSCULAR HEMOGLOBIN 32 pg (27.0-31.0); MEAN CORPUSCULAR HGB CONC 34 g/dl (33.0-37.0); MEAN PLATELET VOLUME 9.2 fl (7.4-10.4); MONO # 0.9 (0.1-0.6); MONO % 5.1 % (1.7-9.3); PLATELET COUNT 196 K/mm3 (130-400); RED BLOOD COUNT 4.01 M/mm3 (4.20-5.60); REDCELL DISTRIBUTION WIDTH-CV 14.4 % (11.5-14.5)
[2017-10-27 19:36] LABS: ALBUMIN 4.5 gm/dL (3.5-5.0); BILIRUBIN,TOTAL 0.6 mg/dL (0.0-1.0); CALCIUM 9.4 mg/dL (8.4-10.2); CREATININE, serum 1.62 mg/dL (0.66-1.25); POTASSIUM 3.8 mmol/L (3.4-5.0); TOTAL PROTEIN 7.9 gm/dL (6.4-8.2)
[2017-10-27 20:10] LABS: INFLUENZA A NEGATIVE; INFLUENZA B NEGATIVE
[2017-10-27 20:22] LABS: INR 1.2 (0.8-3.0); PROTHROMBIN TIME 14.1 SECONDS (9.7-12.8)
[2017-10-27 20:25] LABS: COLLECTION METHOD CLEAN CATCH
[2017-10-27 20:32] LABS: PH 5 (5-8); SQUAMOUS EPITHELIAL 0-2 /hpf; URINE APPEARANCE Clear; URINE BACTERIA None Seen /hpf; URINE BILIRUBIN Negative (NEGATIVE); URINE BLOOD 2+ (NEGATIVE); URINE COLOR Yellow; URINE GLUCOSE Negative (NEGATIVE); URINE KETONE Negative (NEGATIVE); URINE LEUKOCYTE ESTERASE Negative (NEGATIVE); URINE NITRATE Negative (NEGATIVE); URINE PROTEIN(semi-quant) Negative (NEGATIVE); URINE UROBILINOGEN Negative (NEGATIVE); URINE WBC 0-2 /hpf
[2017-10-27] MEDS ORDERED: INCRUSE EL62.5 MCG/A IH (23:05)
[2017-10-27] MEDS ORDERED: LASIX 80MG TABL80 MG PO (23:06)
[2017-10-28] VITALS (452 sets, daily range): BP systolic 95–127; BP diastolic 46–69; PULSE 66–95; TEMP 97.4–98.9; O2SAT 84–100
[2017-10-28 00:33] LABS: ARTERIAL BLD GAS O2 SATURATION 96.4 % (92-100); ARTERIAL BLD GAS TCO2 CT 25.2; ARTERIAL BLOOD GAS BASE EXCESS -1.2 (-2-2); ARTERIAL BLOOD GAS PO2 90.6 mmHg (80-100); ARTERIAL BLOOD GAS pH 7.37 (7.35-7.45)
[2017-10-28 01:07] LABS: ALBUMIN 4.3 gm/dL (3.5-5.0); BILIRUBIN UNCONJUGATED 0.3 mg/dL (0.0-1.1); BILIRUBIN,DIRECT 0.4 mg/dL (0.0-0.4); BILIRUBIN,TOTAL 0.6 mg/dL (0.0-1.0)
[2017-10-28 05:50] LABS: BASO % 0.1 % (0.0-2.0); GRAN # 10.3 (1.4-6.5); LYMPH # 0.2 (1.2-3.4); LYMPH % 1.8 % (20.0-51.0); MEAN CELL VOLUME 98 fl (80.0-100.0); MEAN CORPUSCULAR HGB CONC 32 g/dl (33.0-37.0); MONO # 0.2 (0.1-0.6); MONO % 1.4 % (1.7-9.3); PLATELET COUNT 132 K/mm3 (130-400); RED BLOOD COUNT 3.43 M/mm3 (4.20-5.60); REDCELL DISTRIBUTION WIDTH-CV 14.6 % (11.5-14.5)
[2017-10-28 05:52] LABS: HEMATOCRIT 33.6 % (42.0-52.0); HEMOGLOBIN 10.8 g/dl (13.5-18.0); MEAN CORPUSCULAR HEMOGLOBIN 31 pg (27.0-31.0)
[2017-10-28 06:02] LABS: CALCIUM 8.4 mg/dL (8.4-10.2); CREATININE, serum 1.3 mg/dL (0.66-1.25); MAGNESIUM 2.4 mg/dL (1.6-2.3); PHOSPHOROUS 3.2 mg/dL (2.5-4.5); POTASSIUM 4.6 mmol/L (3.4-5.0)
[2017-10-29 01:00] VITALS: BP 106/60; PULSE 82; TEMP 97.5
[2017-10-29 03:49] VITALS: BP 112/62; PULSE 71; TEMP 97.4
[2017-10-29 06:37] LABS: MEAN CELL VOLUME 100 fl (80.0-100.0); MEAN CORPUSCULAR HGB CONC 32 g/dl (33.0-37.0); MEAN PLATELET VOLUME 10.1 fl (7.4-10.4); PLATELET COUNT 146 K/mm3 (130-400); RED BLOOD COUNT 3.12 M/mm3 (4.20-5.60); REDCELL DISTRIBUTION WIDTH-CV 14.6 % (11.5-14.5)
[2017-10-29 06:38] LABS: ALBUMIN 3.1 gm/dL (3.5-5.0); BILIRUBIN,TOTAL 0.2 mg/dL (0.0-1.0); CALCIUM 8.6 mg/dL (8.4-10.2); CREATININE, serum 1.03 mg/dL (0.66-1.25); MAGNESIUM 2.4 mg/dL (1.6-2.3); POTASSIUM 4.3 mmol/L (3.4-5.0); TOTAL PROTEIN 6.1 gm/dL (6.4-8.2)
[2017-10-29 06:41] LABS: HEMATOCRIT 31.2 % (42.0-52.0); HEMOGLOBIN 9.9 g/dl (13.5-18.0); MEAN CORPUSCULAR HEMOGLOBIN 32 pg (27.0-31.0)
[2017-10-29 07:27] LABS: BAND 40 % (0-10); LYMPHOCYTE 4 % (20.0-51.0); NEUTROPHILS 55 % (42.0-75.2)
[2017-10-29 08:30] VITALS: BP 109/61; PULSE 76; TEMP 97.7
[2017-10-29 11:38] VITALS: BP 116/53; PULSE 81; TEMP 98.2
[2017-10-29] MEDS ORDERED: ZITHROMAX Z PA250 MG PO (12:53)
[2017-10-29] MEDS ORDERED: CEFTIN500 MG PO (12:57)
[2017-10-29] MEDS ORDERED: PREDNISONE20 MG PO (13:05)
== END 2017-10-29 14:20 | disposition home or self-care (01) | DRG 871 ==
LOC: COL.ER 18:45 → ICU 21:25 → MEDICAL 10-28 15:26
PROVIDERS: Emergency Medicine; Internal Medicine
DX: A41.9 Sepsis, unspecified organism (principal); R65.21 Severe sepsis with septic shock; E87.1 Hypo-osmolality and hyponatremia; I50.32 Chronic diastolic (congestive) heart failure; N17.9 Acute kidney failure, unspecified; J44.9 Chronic obstructive pulmonary disease, unspecified; I11.0 Hypertensive heart disease with heart failure; I25.10 Atherosclerotic heart disease of native coronary artery without angina pectoris; Z95.5 Presence of coronary angioplasty implant and graft; D64.9 Anemia, unspecified; I27.22 Pulmonary hypertension due to left heart disease; Z87.891 Personal history of nicotine dependence; R73.9 Hyperglycemia, unspecified
CPT/HCPCS: 99222-AI; 99233-AI; J0456; J0692; J1644; J1815; J2405; J2920; J2930; J7030; J7040; J7050; J7060

== ENCOUNTER 2018-01-09 12:24 | Inpatient (IN) | payer OTHER ==
[~2018-01-09] VITALS: Ht 175.3 cm; Wt 98.8 kg
[~2018-01-09 12:24] MED LIST changes: +ZITHROMAX Z PA250 MG PO
[2018-01-09 13:19] LABS: BASO % 0.3 % (0.0-2.0); EOS % 0.1 % (0-4.0); GRAN # 11.9 (1.4-6.5); GRAN % 91.3 % (42.2-75.2); LYMPH # 0.3 (1.2-3.4); LYMPH % 2.2 % (20.0-51.0); MEAN CELL VOLUME 93 fl (80.0-100.0); MEAN CORPUSCULAR HGB CONC 33 g/dl (33.0-37.0); MEAN PLATELET VOLUME 9.4 fl (7.4-10.4); MONO # 0.8 (0.1-0.6); MONO % 5.8 % (1.7-9.3); PLATELET COUNT 180 K/mm3 (130-400); RED BLOOD COUNT 3.64 M/mm3 (4.20-5.60); REDCELL DISTRIBUTION WIDTH-CV 14.9 % (11.5-14.5)
[2018-01-09 13:23] LABS: HEMOGLOBIN 11.2 g/dl (13.5-18.0); MEAN CORPUSCULAR HEMOGLOBIN 31 pg (27.0-31.0)
[2018-01-09 13:25] LABS: ALBUMIN 3.8 gm/dL (3.5-5.0); BILIRUBIN,TOTAL 0.6 mg/dL (0.0-1.0); CREATININE, serum 1.19 mg/dL (0.66-1.25); POTASSIUM 3.8 mmol/L (3.4-5.0); TOTAL PROTEIN 7.7 gm/dL (6.4-8.2)
[2018-01-09 15:09] LABS: COLLECTION METHOD CLEAN CATCH
[2018-01-09 15:22] LABS: MUCOUS Present /lpf; PH 5 (5-8); SQUAMOUS EPITHELIAL 0-2 /hpf; URINE APPEARANCE Clear; URINE BACTERIA None Seen /hpf; URINE BILIRUBIN Negative (NEGATIVE); URINE BLOOD 2+ (NEGATIVE); URINE COLOR Yellow; URINE GLUCOSE Negative (NEGATIVE); URINE KETONE Negative (NEGATIVE); URINE LEUKOCYTE ESTERASE Negative (NEGATIVE); URINE NITRATE Negative (NEGATIVE); URINE PROTEIN(semi-quant) Negative (NEGATIVE); URINE UROBILINOGEN Negative (NEGATIVE)
[2018-01-09 15:29] VITALS: BP 105/52; PULSE 96; TEMP 98.9
[2018-01-09 16:35] VITALS: BP 136/79; PULSE 122; TEMP 99.5
[2018-01-09 18:42] LABS: ARTERIAL BLD GAS O2 SATURATION 94.1 % (92-100); ARTERIAL BLD GAS TCO2 CT 25.4; ARTERIAL BLOOD GAS BASE EXCESS 0.7 (-2-2); ARTERIAL BLOOD GAS HCO3 24.4 meq/L (22-26); ARTERIAL BLOOD GAS PCO2 35.6 mmHg (35-45); ARTERIAL BLOOD GAS PO2 72.8 mmHg (80-100); ARTERIAL BLOOD GAS pH 7.45 (7.35-7.45)
[2018-01-09 21:01] VITALS: BP 122/61; PULSE 100; TEMP 98.4
[2018-01-10 05:28] VITALS: BP 104/67; PULSE 85; TEMP 98.4
[2018-01-10 06:38] LABS: BASO % 0.1 % (0.0-2.0); GRAN # 7.8 (1.4-6.5); GRAN % 87.2 % (42.2-75.2); LYMPH # 0.5 (1.2-3.4); LYMPH % 5.3 % (20.0-51.0); MEAN CELL VOLUME 95 fl (80.0-100.0); MEAN CORPUSCULAR HGB CONC 33 g/dl (33.0-37.0); MEAN PLATELET VOLUME 9.5 fl (7.4-10.4); MONO # 0.6 (0.1-0.6); PLATELET COUNT 132 K/mm3 (130-400); RED BLOOD COUNT 3.09 M/mm3 (4.20-5.60); REDCELL DISTRIBUTION WIDTH-CV 15.4 % (11.5-14.5)
[2018-01-10 06:43] LABS: CREATININE, serum 1.22 mg/dL (0.66-1.25); HEMATOCRIT 29.2 % (42.0-52.0); HEMOGLOBIN 9.6 g/dl (13.5-18.0); MAGNESIUM 1.9 mg/dL (1.6-2.3); MEAN CORPUSCULAR HEMOGLOBIN 31 pg (27.0-31.0); POTASSIUM 3.9 mmol/L (3.4-5.0)
[2018-01-10 08:35] VITALS: BP 92/50; PULSE 96; TEMP 98.3
[2018-01-10 11:45] VITALS: BP 92/50; PULSE 92; TEMP 98.1
[2018-01-10] MEDS ORDERED: ZITHROMAX 250M250 MG PO ×3 (13:19→13:31)
[2018-01-10] MEDS ORDERED: OMNICEF 300MG300 MG PO (13:20)
== END 2018-01-10 14:23 | disposition home or self-care (01) | DRG 872 ==
LOC: COL.ER 12:24 → MEDICAL 13:51
PROVIDERS: Emergency Medicine; Nurse Practitioner Family
DX: A41.9 Sepsis, unspecified organism (principal); I50.30 Unspecified diastolic (congestive) heart failure; J44.9 Chronic obstructive pulmonary disease, unspecified; G47.33 Obstructive sleep apnea (adult) (pediatric); E78.5 Hyperlipidemia, unspecified; I11.0 Hypertensive heart disease with heart failure; Z66 Do not resuscitate; D64.9 Anemia, unspecified; Z99.81 Dependence on supplemental oxygen; Z95.5 Presence of coronary angioplasty implant and graft; Z87.891 Personal history of nicotine dependence; I27.20 Pulmonary hypertension, unspecified
CPT/HCPCS: 99223-AI; 99239; J0456; J0692; J2543; J2765; J7030; J7050

== ENCOUNTER 2018-02-04 09:49 | Inpatient (IN) | payer OTHER ==
[2018-02-04] VITALS (483 sets, daily range): BP systolic 89–122; BP diastolic 56–70; PULSE 80–115; TEMP 97–100.3; O2SAT 69–100
[~2018-02-04] VITALS: Ht 175.3 cm; Wt 107.0 kg
[2018-02-04 10:48] LABS: HEMOGLOBIN 11.6 g/dl (13.5-18.0); MEAN CELL VOLUME 92 fl (80.0-100.0); MEAN CORPUSCULAR HEMOGLOBIN 31 pg (27.0-31.0); MEAN CORPUSCULAR HGB CONC 34 g/dl (33.0-37.0); MEAN PLATELET VOLUME 9.6 fl (7.4-10.4); PLATELET COUNT 167 K/mm3 (130-400); RED BLOOD COUNT 3.78 M/mm3 (4.20-5.60); REDCELL DISTRIBUTION WIDTH-CV 15.1 % (11.5-14.5)
[2018-02-04 10:51] LABS: HEMATOCRIT 34.6 % (42.0-52.0)
[2018-02-04 11:05] LABS: BILIRUBIN,TOTAL 0.7 mg/dL (0.0-1.0); C-REACTIVE PROTEIN 7.8 mg/dL (0.0-0.9); CALCIUM 9.2 mg/dL (8.4-10.2); CREATININE, serum 1.51 mg/dL (0.66-1.25); POTASSIUM 3.7 mmol/L (3.4-5.0); TOTAL PROTEIN 8.4 gm/dL (6.4-8.2)
[2018-02-04 11:12] LABS: BAND 28 % (0-10); LYMPHOCYTE 2 % (20.0-51.0); NEUTROPHILS 66 % (42.0-75.2); PLATELET ESTIMATE NORMAL (NORMAL); TROPONIN-I < 0.012 ng/mL (0.000-0.034)
[2018-02-04 21:19] LABS: COLLECTION METHOD CLEAN CATCH
[2018-02-04 21:28] LABS: MUCOUS Present /lpf; PH 5 (5-8); SQUAMOUS EPITHELIAL 0-2 /hpf; URINE APPEARANCE Clear; URINE BACTERIA Rare /hpf; URINE BILIRUBIN Negative (NEGATIVE); URINE BLOOD 2+ (NEGATIVE); URINE COLOR Yellow; URINE GLUCOSE Negative (NEGATIVE); URINE KETONE Negative (NEGATIVE); URINE LEUKOCYTE ESTERASE Negative (NEGATIVE); URINE NITRATE Negative (NEGATIVE); URINE PROTEIN(semi-quant) 1+ (NEGATIVE); URINE UROBILINOGEN Negative (NEGATIVE)
[2018-02-04 23:44] LABS: PROCALCITONIN 1.11 ng/mL (0.00-0.09)
[2018-02-05] VITALS (639 sets, daily range): BP systolic 90–144; BP diastolic 55–78; PULSE 65–98; TEMP 96.9–98; O2SAT 52–100
[2018-02-05 05:40] LABS: BASO % 0.1 % (0.0-2.0); GRAN # 8.6 (1.4-6.5); LYMPH # 0.3 (1.2-3.4); LYMPH % 2.9 % (20.0-51.0); MEAN CELL VOLUME 95 fl (80.0-100.0); MEAN CORPUSCULAR HGB CONC 32 g/dl (33.0-37.0); MEAN PLATELET VOLUME 9.4 fl (7.4-10.4); MONO # 0.1 (0.1-0.6); MONO % 1.6 % (1.7-9.3); PLATELET COUNT 120 K/mm3 (130-400); RED BLOOD COUNT 3.15 M/mm3 (4.20-5.60); REDCELL DISTRIBUTION WIDTH-CV 15.5 % (11.5-14.5)
[2018-02-05 05:56] LABS: ALBUMIN 3.1 gm/dL (3.5-5.0); BILIRUBIN,TOTAL 0.3 mg/dL (0.0-1.0); CALCIUM 8.3 mg/dL (8.4-10.2); CREATININE, serum 1.23 mg/dL (0.66-1.25); POTASSIUM 4.1 mmol/L (3.4-5.0); TOTAL PROTEIN 6.5 gm/dL (6.4-8.2)
[2018-02-05 05:58] LABS: HEMATOCRIT 29.8 % (42.0-52.0); HEMOGLOBIN 9.5 g/dl (13.5-18.0); MEAN CORPUSCULAR HEMOGLOBIN 30 pg (27.0-31.0)
[2018-02-05] MEDS ORDERED: ZITHROMAX 250M250 MG PO (23:44)
[2018-02-06 03:37] VITALS: BP 95/67; PULSE 85; TEMP 97.4
[2018-02-06 08:11] VITALS: BP 123/48; PULSE 87; TEMP 98.2
[2018-02-06 08:27] VITALS: BP 102/62; PULSE 89; TEMP 98.5
[2018-02-06] MEDS ORDERED: ZITHROMAX 250M250 MG PO (10:42)
[2018-02-06] MEDS ORDERED: OMNICEF 300MG300 MG PO (10:43)
[2018-02-06] MEDS ORDERED: PREDNISONE10 MG PO (10:44)
[2018-02-06 12:54] VITALS: BP 105/67; PULSE 72; TEMP 97.8
== END 2018-02-06 16:30 | disposition home or self-care (01) | DRG 191 ==
LOC: COL.ER 09:49 → ICU 11:56 → MEDICAL 02-05 23:10
PROVIDERS: Emergency Medicine; Nurse Practitioner Family
DX: J44.1 Chronic obstructive pulmonary disease with (acute) exacerbation (principal); N17.9 Acute kidney failure, unspecified; I50.32 Chronic diastolic (congestive) heart failure; Z66 Do not resuscitate; I25.10 Atherosclerotic heart disease of native coronary artery without angina pectoris; I11.0 Hypertensive heart disease with heart failure; I27.22 Pulmonary hypertension due to left heart disease; Z95.5 Presence of coronary angioplasty implant and graft; G47.33 Obstructive sleep apnea (adult) (pediatric); Z87.891 Personal history of nicotine dependence
CPT/HCPCS: 99223-AI; 99232-AI; 99239; A9502; J1250; J1650; J1720; J2405; J2543; J2930; J3370; J7030; J7040; J7050; J7512; Q9967

== ENCOUNTER 2021-03-21 11:55 | Day surgery (SDC) | payer MEDICARE ==
[~2021-03-21] VITALS: Ht 175.3 cm; Wt 98.8 kg
[2021-03-21] VITALS (9 sets, daily range): BP systolic 89–110; BP diastolic 49–77; PULSE 73–89; TEMP 98.4
[~2021-03-21 11:55] MED LIST changes: +LASIX 40MG TABL40 MG PO
[2021-03-21 12:56] LABS: HEMATOCRIT 39.4 % (42.0-52.0); HEMOGLOBIN 12.5 g/dl (13.5-18.0); MEAN CELL VOLUME 90 fl (80.0-100.0); MEAN CORPUSCULAR HEMOGLOBIN 29 pg (27.0-31.0); MEAN CORPUSCULAR HGB CONC 32 g/dl (33.0-37.0); PLATELET COUNT 219 K/mm3 (130-400); RED BLOOD COUNT 4.39 M/mm3 (4.20-5.60); REDCELL DISTRIBUTION WIDTH-CV 17.5 % (11.5-14.5)
[2021-03-21 13:04] LABS: INR 1.1 (0.8-3.0); PROTHROMBIN TIME 12.2 SECONDS (9.7-12.8)
[2021-03-21 13:05] LABS: CALCIUM 9.2 mg/dL (8.4-10.2); CREATININE, serum 1.62 (0.66-1.25)
[2021-03-21 13:07] LABS: PARTIAL THROMBOPLASTIN TIME 32.7 SECONDS (26.0-37.0)
[2021-03-21] MEDS ORDERED: ZEBETA 5MG5 MG PO (13:29)
[2021-03-21] MEDS ORDERED: ZESTRIL2.5 MG PO (13:29)
[2021-03-21] MEDS ORDERED: WELLBUTRIN XL150 MG PO (13:29)
--- NOTE | 2021-03-21 13:57 | NUR ---
SEE MERGE FOR ALL MEDICATION ADMNISTRATION TIMES, INTRA AND POST SEDATION ASSESSMENTS
--- NOTE | 2021-03-21 14:37 | NUR ---
pt placed on bipap at 1400 14/6, 30% prior to heart cath. Taken off of bipap at 1430 and placed back on his home o2 at 3 liters
--- NOTE | 2021-03-21 17:20 | NUR ---
DC instructions reviewed with pt and , both express understanding. Air has been removed from TR band in 2 ml increments with no bleeding or complication. Rt radial puncture site covered with 2x2 and bandaid. Pt is steady in room on feet. INT DC'd with catheter intact. Pt is assisted out to 's car by wheelchair.
[2021-04-30] MEDS ORDERED: RT ADVAIR 228 DISKUS IH (18:57)
[2021-05-02] MEDS ORDERED: MULTAQ400 MG PO (09:12)
[2021-05-02] MEDS ORDERED: ELIQUIS 5MG PO (09:13)
[2021-05-02] MEDS ORDERED: DOXYCYCLINE 10100 MG PO (09:13)
[2021-05-02] MEDS ORDERED: MEDROL 4MG DOSPA4 MG PO (09:14)
== END 2021-03-21 17:20 | disposition home or self-care (01) ==
LOC: COL.CAR 11:55
PROVIDERS: Internal Medicine Cardiovascular Disease
DX: I25.110 Atherosclerotic heart disease of native coronary artery with unstable angina pectoris (principal); I42.9 Cardiomyopathy, unspecified; I27.20 Pulmonary hypertension, unspecified; G47.33 Obstructive sleep apnea (adult) (pediatric); J44.9 Chronic obstructive pulmonary disease, unspecified; Z95.1 Presence of aortocoronary bypass graft; Z99.89 Dependence on other enabling machines and devices
CPT/HCPCS: J1644; J2250; J3010; Q9967

== ENCOUNTER 2021-06-06 07:33 | Emergency (ER) | payer MEDICARE ==
[~2021-06-06] VITALS: Ht 175.3 cm; Wt 100.0 kg
[~2021-06-06 07:33] MED LIST changes: +DOXYCYCLINE 10100 MG PO; +ELIQUIS 5MG PO; +MEDROL 4MG DOSPA4 MG PO; +MULTAQ400 MG PO; +WELLBUTRIN XL150 MG PO; +ZEBETA 5MG5 MG PO; +ZESTRIL2.5 MG PO
[2021-06-06 08:16] LABS: BASO % 0.4 % (0.0-2.0); EOS % 0.5 % (0-4.0); GRAN # 6.6 (1.4-6.5); GRAN % 80.7 % (42.2-75.2); HEMATOCRIT 37.2 % (42.0-52.0); HEMOGLOBIN 12.2 g/dl (13.5-18.0); LYMPH # 0.8 (1.2-3.4); LYMPH % 9.3 % (20.0-51.0); MEAN CELL VOLUME 91 fl (80.0-100.0); MEAN CORPUSCULAR HEMOGLOBIN 30 pg (27.0-31.0); MEAN CORPUSCULAR HGB CONC 33 g/dl (33.0-37.0); MEAN PLATELET VOLUME 8.9 fl (7.4-10.4); MONO # 0.7 (0.1-0.6); MONO % 8.5 % (1.7-9.3); PLATELET COUNT 196 K/mm3 (130-400); RED BLOOD COUNT 4.09 M/mm3 (4.20-5.60); REDCELL DISTRIBUTION WIDTH-CV 17.2 % (11.5-14.5)
[2021-06-06 08:19] LABS: INR 1.5 (0.8-3.0); PROTHROMBIN TIME 16.7 SECONDS (9.7-12.8)
[2021-06-06 08:22] LABS: ALANINE AMINOTRANSFERASE 21 U/L (4-49); ALBUMIN 4.2 gm/dL (3.5-5.0); ALKALINE PHOSPHATASE 76 U/L (50-136); ANION GAP 8 mmol/L (7-16); AST,SGOT 23 U/L (15-37); BILIRUBIN,TOTAL 0.5 mg/dL (0.0-1.0); BLOOD UREA NITROGEN 18 mg/dL (9-20); CALCIUM 9.1 mg/dL (8.4-10.2); CARBON DIOXIDE 27 mmol/L (22-30); CHLORIDE 105 mmol/L (98-107); CREATININE, serum 1.54 (0.66-1.25); GLUCOSE 111 mg/dL (74-106); POTASSIUM 4.3 mmol/L (3.4-5.0); SODIUM 139 mmol/L (137-145); TOTAL PROTEIN 7.6 gm/dL (6.4-8.2)
[2021-06-06 08:40] LABS: TROPONIN-I < 0.012 ng/mL (0.000-0.035)
[2021-06-06] MEDS ORDERED: LASIX 20MG TABL20 MG PO (11:12)
[2021-06-06 12:07] VITALS: BP 114/69; PULSE 77; TEMP 98.2
== END 2021-06-06 12:09 | disposition home or self-care (01) ==
LOC: COL.ER 07:33
PROVIDERS: Family Medicine
DX: N28.9 Disorder of kidney and ureter, unspecified (principal); N18.9 Chronic kidney disease, unspecified; I48.92 Unspecified atrial flutter; I50.9 Heart failure, unspecified; R00.0 Tachycardia, unspecified; I25.10 Atherosclerotic heart disease of native coronary artery without angina pectoris; J44.9 Chronic obstructive pulmonary disease, unspecified; I95.9 Hypotension, unspecified; I25.2 Old myocardial infarction; Z87.891 Personal history of nicotine dependence; Z95.9 Presence of cardiac and vascular implant and graft, unspecified; Z79.01 Long term (current) use of anticoagulants; Z79.82 Long term (current) use of aspirin; Z79.899 Other long term (current) drug therapy

== ENCOUNTER 2021-06-22 14:06 | Inpatient (IN) | payer MEDICARE ==
[~2021-06-22] VITALS: Ht 175.4 cm; Wt 99.1 kg
[~2021-06-22 14:06] MED LIST changes: +LASIX 20MG TABL20 MG PO
[2021-07-09 09:00] VITALS: BP 106/62; PULSE 82; TEMP 97.9
[2021-07-09 09:47] LABS: CALCIUM 9.9 mg/dL (8.4-10.2); CREATININE, serum 1.56 mg/dL (0.72-1.25); MAGNESIUM 2.1 mg/dL (1.6-2.6); POTASSIUM 4.1 mmol/L (3.5-4.5)
[2021-07-09] MEDS ORDERED: LIPITOR20 MG PO (10:20)
[2021-07-09] MEDS ORDERED: BUSPAR DIVIDOSE15 MG PO (10:21)
[2021-07-09] MEDS ORDERED: DESYREL 50MG50 MG PO (10:22)
[2021-07-09] MEDS ORDERED: KLONOPIN 1MG1 MG PO (10:22)
[2021-07-09] MEDS ORDERED: IRON TABLETS325 MG PO (10:24)
[2021-07-09] MEDS ORDERED: PEPCID 20MG TAB20 MG PO (10:25)
[2021-07-09] MEDS ORDERED: XANAX .25M0.25 MG/TA PO (10:26)
[2021-07-09 12:14] VITALS: BP 106/57; PULSE 82; TEMP 97.6
[2021-07-09 16:35] VITALS: BP 118/64; PULSE 83; TEMP 97.7
--- NOTE | 2021-07-09 18:30 | NUR ---
Pt has done well since arriving to the [facility] this morning. Denies any pain or other issues. Will give report to nightshift nurse who will resume care.
[2021-07-09 20:00] VITALS: BP 106/72; PULSE 82; TEMP 97.6
--- NOTE | 2021-07-09 20:30 | NUR ---
Initial shift assessment done- denies pain, o2 at 3L/nc, that is patients baseline, VSS, on Tele -SR, Dr. Wong called and informed of most recent QTC being 15% above the initial-- states ok to give the dose as ordered tonight-- will get another EKG 2 hrs after dose tonight. Wears bipap at night.
[2021-07-09 23:49] VITALS: BP 90/58; PULSE 84; TEMP 98.4
[2021-07-10 03:20] VITALS: BP 101/58; PULSE 84; TEMP 98.2
--- NOTE | 2021-07-10 05:34 | NUR ---
Quiet night, Did not use Bipap for long ,states different than his at home, no requests, tele on- no issues.
--- NOTE | 2021-07-10 07:10 | NUR ---
awake and sitting up in chair, bedside shift report received from FABIOLA Escoto
--- NOTE | 2021-07-10 07:30 | NUR ---
sitting up on bench seat having breakfast, given am meds, denies pain or needs at this time
[2021-07-10 07:50] VITALS: BP 105/58; PULSE 85; TEMP 97.5
--- NOTE | 2021-07-10 08:30 | NUR ---
full assessment completed, see interventions for further info, up and about in room independently, denies needs
--- NOTE | 2021-07-10 09:24 | NUR ---
Initial visit; Patient thanked Prototype Engineer for looking in on him and offering God's blessings.
--- NOTE | 2021-07-10 09:39 | NUR ---
grease worker met with patient to discuss discharge plan. Patient lives at home with his , Reny ([phone]) [place] of [place]. Patient reports to being fully independent with his ADL's and does not utilitze any medical equipment to assist with mobility. Patient is on a BiPap machine that he bought "years" ago and receives his oxygen through [facility]. PCP is Dr. Betancur and utilizes [facility] in [place] for medications with no cost difficulty. Patient states that he does not have a DPOA-HC/living will established and does not wish to at this time. Patient is planning on returning home with no concerns. Discharge plan: Home with spouse
--- NOTE | 2021-07-10 11:00 | NUR ---
UP IN CHAIR REVIEWING MENU AND READY TO ORDER LUNCH
--- NOTE | 2021-07-10 12:04 | NUR ---
up in chair having lunch, denies needs
[2021-07-10 12:25] VITALS: BP 100/60; PULSE 83; TEMP 98.3
--- NOTE | 2021-07-10 15:32 | NUR ---
remains up and about in room independently and denies needs
[2021-07-10 16:38] VITALS: BP 108/56; PULSE 82; TEMP 97.8
[2021-07-10 17:50] LABS: CREATININE, serum 1.5 mg/dL (0.72-1.25); POTASSIUM 4.2 mmol/L (3.4-5.0)
[2021-07-10 17:51] LABS: CALCIUM 9.3 mg/dL (8.4-10.2); MAGNESIUM 2.2 mg/dL (1.6-2.3)
--- NOTE | 2021-07-10 18:44 | NUR ---
bedside shift report given to FABIOLA Richards
[2021-07-10 19:12] VITALS: BP 110/61; PULSE 80; TEMP 98
--- NOTE | 2021-07-10 20:00 | NUR ---
Assessment complete. Patient alert and oriented with no complaints of pain. Qtc 471 and Tikosyn dose administered as ordered. HR normal/regular and vitals signs WNL. Call light in reach and no new complaints.
[2021-07-11 00:45] VITALS: BP 103/60; PULSE 78; TEMP 98.1
[2021-07-11 04:23] VITALS: BP 105/54; PULSE 82; TEMP 98.2
[2021-07-11 07:42] VITALS: BP 119/56; PULSE 87; TEMP 97.4
[2021-07-11 07:55] LABS: CALCIUM 9.4 mg/dL (8.4-10.2); CREATININE, serum 1.43 mg/dL (0.72-1.25); MAGNESIUM 2.2 mg/dL (1.6-2.6); POTASSIUM 4.2 mmol/L (3.5-4.5)
--- NOTE | 2021-07-11 08:30 | NUR ---
Shift assessment complete. Pt up ad rom in room and carballo. Wearing NC at 3 lpm O2. Heart RRR. Lungs CTA. Denies pain, dizziness, increased SOA or other concerns. Hoping to go home today. Awaiting cardiology to round. Denies further needs. Call light in reach.
[2021-07-11] MEDS ORDERED: TIKOSYN0.25 MG PO (12:34)
[2021-07-11 12:37] VITALS: BP 121/57; PULSE 95; TEMP 97.6
--- NOTE | 2021-07-11 13:40 | NUR ---
IV to left forearm removed w/tip intact. Discharge instructions discussed and all questions answered. Pt escorted out w/all belongings.
== END 2021-07-11 13:35 | disposition home or self-care (01) | DRG 310 ==
LOC: MEDICAL 07-09 08:25
PROVIDERS: ADMIT Internal Medicine Cardiovascular Disease
DX: I48.92 Unspecified atrial flutter (principal); I10 Essential (primary) hypertension; I25.10 Atherosclerotic heart disease of native coronary artery without angina pectoris; I25.2 Old myocardial infarction; G47.33 Obstructive sleep apnea (adult) (pediatric); J44.9 Chronic obstructive pulmonary disease, unspecified